=== PATIENT | female | born 1960 | race Two or more races ===

== ENCOUNTER 2017-06-10 10:19 | Emergency (ER) | payer OTHER ==
[2017-06-10 10:37] VITALS: BP 130/80; PULSE 100; RESP 18; TEMP 98; O2SAT 97
--- NOTE | 2017-06-10 10:59 | EDPHY ---
H & P Stated Complaint: fell @ work hurt Rt lower arm Time Seen by Provider: 06/10/17 10:44 HPI/ROS: CHIEF COMPLAINT: Right arm pain HISTORY OF PRESENT ILLNESS: The patient is a 56-year-old female who works at [employer] and fell in the walk-in freezer. She has pain and bruising to her right mid forearm. Normal range of motion. No wrist or elbow pain. She denies other injuries. REVIEW OF SYSTEMS: Constitutional: denies: chills, fever, recent illness, recent injury EENTM: denies: blurred vision, double vision, nose congestion Respiratory: denies: cough, shortness of breath Cardiac: denies: chest pain, irregular heart rate, lightheadedness, palpitations Gastrointestinal/Abdominal: denies: abdominal pain, diarrhea, nausea, vomiting, blood streaked stools Genitourinary: denies: dysuria, frequency, hematuria, pain Musculoskeletal: See HPI Skin: denies: lesions, rash, jaundice, bruising Neurological: denies: headache, numbness, paresthesia, tingling, dizziness, weakness Hematologic/Lymphatic: denies: blood clots, easy bleeding, easy bruising Immunologic/allergic: denies: HIV/AIDS, transplant EXAM: GENERAL: Well-appearing, well-nourished and in no acute distress. HEAD: Atraumatic, normocephalic. EYES: Pupils equal round and reactive to light, extraocular movements intact, sclera anicteric, conjunctiva are normal. ENT: TMs normal, nares patent, oropharynx clear without exudates. Moist mucous membranes. NECK: Normal range of motion, supple without lymphadenopathy or JVD. LUNGS: Breath sounds clear to auscultation bilaterally and equal. No wheezes rales or rhonchi. HEART: Regular rate and rhythm without murmurs, rubs or gallops. ABDOMEN: Soft, nontender, normoactive bowel sounds. No guarding, no rebound. No masses appreciated. BACK: No CVA tenderness, no spinal tenderness, step-offs or deformities EXTREMITIES: Bruising and swelling to right mid forearm dorsally. Normal range of motion. Mild tenderness to palpation. NEUROLOGICAL: Cranial nerves II through XII grossly intact. Normal speech, normal gait. 5/5 strength, normal movement in all extremities, normal sensation PSYCH: Normal mood, normal affect. SKIN: Warm, dry, normal turgor, no visible rashes or lesions. Source: Patient Exam Limitations: No limitations - Personal History Current Tetanus Diphtheria and Acellular Pertussis (TDAP): Yes - Medical/Surgical History Hx Asthma: No Hx Chronic Respiratory Disease: No Hx Diabetes: No Hx Cardiac Disease: No Hx Renal Disease: No Hx Cirrhosis: No Other PMH: denies - Family History Significant Family History: No pertinent family hx - Social History Smoking Status: Never smoked Alcohol Use: Sober Drug Use: None Constitutional: Initial Vital Signs Temperature (C) 36.6 C 06/10/17 10:36 Heart Rate 100 06/10/17 10:36 Respiratory Rate 18 06/10/17 10:36 Blood Pressure 130/80 H 06/10/17 10:36 O2 Sat (%) 97 06/10/17 10:36 O2 Delivery Mode Room Air Allergies/Adverse Reactions: No Known Allergies Allergy (Unverified 06/10/17 10:35) Home Medications: Medication Instructions Recorded NK [No Known Home Meds] 06/10/17 Medical Decision Making - Diagnostics Imaging Results: Imaging Impressions Forearm X-Ray 06/10/17 10:38 Impression: There is no acute osseous abnormality identified. X-ray: Forearm x-ray was obtained. I viewed the images myself on the PACS system. My interpretation of the images is: negative for acute disease . The radiologist interpretation is pending. ED Course/Re-evaluation: The patient has bruising but no sign of fracture. She has normal function and range of motion. I encouraged rest, ice and elevation. She understands and agrees with this plan. She is placed in an Nish wrap. Differential Diagnosis: Partial list of the Differential diagnosis considered include but were not limited to; contusion, fracture and although unlikely based on the history and physical exam, I also considered nerve injury, vascular injury, wrist injury, elbow injury. I discussed these differential diagnoses and the plan with the patient as well as the usual and expected course. The patient understands that the diagnosis is provisional and that in medicine we are not always correct and that further workup is often warranted. Usual and customary warnings were given. All of the patient's questions were answered. The patient was instructed to return to the emergency department should the symptoms at all worsen or return, otherwise to followup with the physician as we discussed. Departure - Departure Disposition: Home, Routine, Self-Care Clinical Impression: Contusion of right forearm Qualifiers: Encounter type: initial encounter Qualified Code(s): S50.11XA - Contusion of right forearm, initial encounter Condition: Fair Instructions: Contusion in Adults (ED) Referrals: Julieta Hung MD [[facility] [place] Primary Care Provider] - As per Instructions Stand Alone Forms: Work Excuse
== END 2017-06-10 11:22 | disposition home or self-care (01) ==
LOC: CED 10:19
DX: S50.11XA Contusion of right forearm, initial encounter (principal); W18.39XA Other fall on same level, initial encounter; Y92.511 Restaurant or cafe as the place of occurrence of the external cause; Y99.0 Civilian activity done for income or pay; Y93.89 Activity, other specified
CPT/HCPCS: 73090-PO